=== PATIENT | male | born 2000 | race African-American/Black ===

== ENCOUNTER 2025-07-17 17:45 | Emergency (ER) | payer MEDICAID, OTHER ==
[~2025-07-17] VITALS: Ht 200.7 cm; Wt 80.3 kg
--- NOTE | 2025-07-17 18:27 | ED.PDOC ---
History of Present Illness HPI Comments 25 y/o M presents with c/c of throat pain x3 months. Pain is stated to have worsened within the week, with associated difficulty swallowing and breathing whenever in a laying position. Denial of any fever, chills, or further acute symptoms. Chief Complaint: Sore Throat Time Seen by MD: 18:25 Reviewed Notes: Nurses Notes, Medications, Allergies Allergies: Coded Allergies: Penicillins (Verified Allergy, Unknown, 07/17/25) Home Meds Active Scripts Methylprednisolone (Medrol Dosepak) 4 Mg Cesario, 4 MG PO UD for 6 Days, #21 TAB UAD Prov:EVI [employer] 07/17/25 Azithromycin (Azithromycin) 500 Mg Tab, 1 TAB PO DAILY for 5 Days, #5 TAB Prov:EVI [facility] 07/17/25 Information Source: Patient Mode of Arrival: Ambulatory Severity: Moderate Timing: Months Duration: Since onset Prehospital treatment: None Past Medical History PAST MEDICAL HISTORY: Denies Surgical History: Denies all surgeries Social History Smoker: Non-Smoker Alcohol: Denies ETOH Use Drugs: Denies Drug Use Lives In: Home All Other Systems: Reviewed and Negative (As per HPI) Physical Exam General Appearance: No Apparent Distress, Normal HEENT: Pharyngeal Erythema, TMs Normal, Tonsillar Exudate (Tonsils grade 3 with exudate and erythema) Neck: Full Range of Motion, Non-Tender Respiratory: Chest Non-Tender, Lungs Clear, No Accessory Muscle Use, No Respiratory Distress, Normal Breath Sounds Cardiovascular: No Edema, No JVD, No Murmur, No Gallop, Normal Peripheral Pulses, Regular Rate/Rhythm Breast Exam: Deferred Gastrointestinal: No Organomegaly, Non Tender, No Pulsatile Mass, Normal Bowel Sounds, Soft Genitalia: Deferred Pelvic: Deferred Rectal: Deferred Extremities: Normal range of motion Musculoskeletal : Apperance: Normal Neurologic: Alert, No Motor Deficits, Normal Affect, Normal Mood, No Sensory Deficits Cerebellar Function: Normal Reflexes: NOT DONE Skin: Dry, Normal Color, Warm Lymphatic: No Adenopathy Was a procedure done? Was a procedure done?: No Differential Dx Considerations may include: pharyngitis, laryngitis, streptoccocal, viral, tonsillitis, among others X-Ray, Labs, Meds, VS Vital Signs Date Time Temp Pulse Resp B/P (MAP) Pulse Ox O2 Delivery O2 Flow Rate FiO2 07/17/25 17:50 97.8 91 18 159/93 98 97.8 X-Ray, Labs, Meds, VS Comment Likely infected. Script trial of antibiotics and steroid. Advised to take medication as prescribed side effects discussed. Advised to rest increase p.o. fluids with electrolytes. Follow up with your PCP in three days if no improvement. ER return precautions given patient indicates understanding and agrees with discharge plan of care. Time of 1ST Reevaluation: 18:55 Reevaluation 1ST: Unchanged Time of 2ND Reevaluation: 18:34 Reevaluation 2ND: Improved Patient Education/Counseling: Diagnosis, Treatment, Need For Follow Up Family Education/Counseling: No Family Present SEPSIS Sepsis Screen Date sepsis recognized/suspect: Jul 17, 2025 Time Sepsis recognized/suspect: 1749 Recent Procedure: No On Antibiotic Therapy: No Respiratory Rate >20: No Heart Rate >90: Yes Temp<36 C (96.8 F) or >38.3 C: No SBP <90 or MAP <65 mmHG: No New Acute Mental Status Change: No Is the patient on CPAP, BIPAP,: No Physician Orders Dexamethasone Injection (Decadron Inject (07/17/25 18:45) Azithromycin Tablet (Zithromax Tablet) (07/17/25 18:45) Vital Signs Date Time Temp Pulse Resp B/P (MAP) Pulse Ox O2 Delivery O2 Flow Rate FiO2 07/17/25 17:50 97.8 91 18 159/93 98 97.8 Departure 1 Departure Time of Disposition: 18:34 Impression: Primary Impression: Tonsillitis Disposition: HOME / SELF CARE / HOMELESS Condition: Stable e-Prescriptions Methylprednisolone (Medrol Dosepak) 4 Mg Cesario 4 MG PO UD for 6 Days, #21 TAB UAD Prov: EVI [employer] 07/17/25 Azithromycin (Azithromycin) 500 Mg Tab 1 TAB PO DAILY for 5 Days, #5 TAB Prov: EVI [employer] 07/17/25 Discharged With: Self Critical Care Note Critical Care Time?: No Stability Stability form required: No Heart Score Heart Score: Heart Score Response (Comments) Value History N/A 0 EKG N/A 0 Age N/A 0 Risk Factors N/A 0 Troponin N/A 0 Total 0 I personally scribed for ER ([email or web address]) on 07/17/25 at 18:27. Electronically submitted by Regulo Taylor ([email or web address]). I personally scribed for ER ([email or web address]) on 07/17/25 at 18:31. Electronically submitted by Regulo Taylor ([email or web address]). ER Jul 17, 2025 18:27 EVI [employer] Jul 17, 2025 18:35
[2025-07-17] MEDS ORDERED: AZIT500T66 PO (18:35)
[2025-07-17] MEDS ORDERED: METH4PAK PO (18:35)
[2025-07-17] MEDS: AZITHROMYCIN 250 MG TAB PO ONE (19:18)
[2025-07-17 19:23] VITALS: BP 161/89; PULSE 89; RESP 18; TEMP 98.2; O2SAT 96
== END 2025-07-17 19:30 | disposition home or self-care (01) ==
LOC: ER 17:45
DX: J03.90 Acute tonsillitis, unspecified (principal); Z79.899 Other long term (current) drug therapy; Z88.0 Allergy status to penicillin
CPT/HCPCS: 96372; 99283; J1100